=== PATIENT | male | born 1970 | race Caucasian/White ===

== ENCOUNTER 2017-04-07 12:30 | Emergency (ER) | payer SELFPAY ==
[~2017-04-07] VITALS: Ht 177.8 cm; Wt 76.0 kg
[2017-04-07 12:31] VITALS: BP 149/98; PULSE 71; RESP 18; TEMP 98.3; O2SAT 100
--- NOTE | 2017-04-07 12:39 | PD ---
Physical Exam Time Seen by Provider: 12:35 Narrative 46yo M c/o high blood pressure yesterday w/ associated nausea. BP reading was 148/112 yesterday, per patient. Reports nausea now. Denies vomiting. Took a friends losartan and atenolol this morning, a couple hours ago, for the first time. Patient seen in triage. VS reviewed. Awaiting bed placement. Data Data Last Documented VS Vital Signs Date Time Temp Pulse Resp B/P Pulse Ox O2 Delivery O2 Flow Rate FiO2 04/07/17 12:31 98.3 71 18 149/98 100 Room Air MDM Supervised Visit with MOUSTAPHA: Carine Bryan April 07, 2017 12:39
[2017-04-07 12:53] VITALS: BP 124/91; PULSE 69; RESP 17; O2SAT 98
--- NOTE | 2017-04-07 13:03 | PD ---
HPI Chief Complaint: Hypertension Time Seen by Provider: 13:03 Travel History International Travel<30 days: No Contact w/Intl Traveler<30days: No Traveled to known affect area: No History of Present Illness HPI 46-year-old male presents to the emergency department for evaluation of elevated blood pressure. The patient states that yesterday he had an episode of mild nausea and generally not feeling well and thought his blood pressure might be elevated so he took his blood pressure which was about 130/80. States that he had a similar episode of "not feeling well" today and his blood pressure at work and it was noted to 148/112. States that a friend at work gave him 2 blood pressure pills, one atenolol 50 mg tablet and one losartan 50 mg tablet. He took these medications about 3 hours ago and his blood pressure has come down. States that he is now feeling well with no complaints. He denies any chest pain, shortness of breath, lightheadedness, chest pain, headache, syncope, cough or cold symptoms, vomiting, diarrhea, abdominal pain, fever, chills. Denies any history of hypertension or any medical conditions. No other complaints. [facility] Past Surgical History Surgical History: No Previous Surgery Social History Alcohol Use: Yes ([facility]) Tobacco Use: Yes Substance Use: No Review of Systems Except as stated in HPI: all other systems reviewed are Neg Physical Exam Narrative GENERAL: Well-nourished and well-developed male patient in no acute distress who is nontoxic appearing. SKIN: Warm and dry. HEAD: Normocephalic and atraumatic. EYES: No injection, drainage, or hyphema noted. PERRLA. EOMI. ENT: No nasal drainage noted. Oropharynx is clear. NECK: Supple and the trachea is midline. CARDIOVASCULAR: Regular rate and rhythm. RESPIRATORY: Breath sounds are equal bilaterally with no accessory muscle use, wheezing, rhonchi, or crackles. GASTROINTESTINAL: Abdomen is soft, non-tender, and nondistended. MUSCULOSKELETAL: No obvious deformities, swelling, cyanosis, or ecchymosis is present throughout the upper and lower extremities. Patient has full range of motion without any signs of neurovascular compromise. Strength 5/5 upper and lower extremities equal bilaterally. NEUROLOGICAL: Awake, alert, and oriented. Normal speech and gait. Cranial nerves are grossly intact. Data Data Last Documented VS Vital Signs Date Time Temp Pulse Resp B/P Pulse Ox O2 Delivery O2 Flow Rate FiO2 04/07/17 12:53 69 17 124/91 98 Room Air 04/07/17 12:31 98.3 MDM Medical Decision Making Medical Screen Exam Complete: Yes Emergency Medical Condition: Yes Differential Diagnosis Viral illness versus normal examination versus hypertension Narrative Course 46-year-old male presents to the emergency department for evaluation of possible hypertension and an episode of generally feeling unwell. No complaints at this time. Feeling better overall. Patient is afebrile, vital signs are stable. Initially when the patient arrives blood pressure is 149/98. His blood pressure is now 124/91. He took a friend's blood pressure medication about 3 hours ago. The atenolol peak effect has passed, the losartan will still be in effect for several hours. I discussed with my attending physician Dr. Ojeda and we agree the patient can be discharged to home and instructed to return for any worsening of symptoms. Patient verbalizes understanding and agreement with treatment plan. Diagnosis Primary Impression: General ill feeling Referrals: [facility] Patient Instructions: General Instructions Additional Instructions: Do not take other people's medications. Follow-up with a Primary Care Physician. I have provided multiple resources for you to establish with a PCP. Return to the ED for any acute worsening of symptoms such as lightheadedness, weakness, syncope, vomiting, chest pain. Med/Other Pt SpecificInfo: No Change to Meds Disposition: 01 DISCHARGE HOME Condition: Stable Carine Luis April 07, 2017 13:03
== END 2017-04-07 13:35 | disposition home or self-care (01) ==
LOC: NEPD 12:30
DX: I10 Essential (primary) hypertension (principal); Z72.0 Tobacco use
CPT/HCPCS: 99282